=== PATIENT | male | born 1945 | race Caucasian/White ===

== ENCOUNTER 2019-09-12 14:45 | Outpatient (CLI) | payer MEDICARE, SELFPAY ==
--- NOTE | ~2019-09-12 | CT_ITS ---
EXAMINATION: CT abdomen pelvis wo con DATE: 09/12/2019 15:45 INDICATION: Bilateral flank pain. History of ureterolithiasis. TECHNIQUE: Computed tomography (CT) of the abdomen and pelvis was performed without intravenous contr ast. The dose-length product was 226.60 mGy-cm. Automated exposure control and iterative reconstructi on technique were employed. COMPARISON: 10/27/2009 FINDINGS: Left lower lobe atelectasis. Heart size normal. No significant pleural or pericardial effus ion. Mild atherosclerosis of the aorta. No lymphadenopathy. There are multiple nonobstructing bilateral renal stones, largest in the right renal pelvis measuring 1.7 cm maximum dimension. The liver, spleen, pancreas, adrenal glands are unremarkable. No ureteral stones or hydronephrosis. Bladder is unremarkable. Mildly prominent prostate gland. Nonobstructive segundo wel gas pattern. Colonic diverticulosis without evidence for diverticulitis. No free air or free flui d. Moderate lumbar spondylosis with grade 1 degenerative spondylolisthesis at L4-5. There are degener ative changes of the hips. IMPRESSION: 1. Nonobstructing bilateral nephrolithiasis. Reviewed, dictated and finalized at location A.
== END 2019-09-12 14:46 | disposition home or self-care (01) ==
PROVIDERS: Visit Provider Family Medicine
DX: N20.0 Calculus of kidney (principal)
CPT/HCPCS: 74176

== ENCOUNTER 2019-09-25 10:08 | Outpatient (CLI) | payer MEDICARE, SELFPAY ==
--- NOTE | ~2019-09-25 | XR_ITS ---
XR abdomen/kub 1V DATE: 09/25/2019 10:28 INDICATION: Calculus of kidney TECHNIQUE: AP projection, 2 views 11/13/2009 KUB COMPARISON: There are bilateral calcified renal calculi, more numerous on the right, documented on re cent 09/12/2019 CT abdomen pelvis examination. FINDINGS: No evidence of calcified calculus of the ureteral areas. The psoas shadows are intact. No bowel obstruction. No visceromegaly is detected. IMPRESSION: Bilateral calcified nephrolithiasis Reviewed, dictated and finalized at Location A. Reviewed, dictated and finalized at location B.
== END 2019-09-25 10:09 | disposition home or self-care (01) ==
LOC: ANHIMG 10:15
PROVIDERS: Visit Provider Urology
DX: N20.0 Calculus of kidney (principal)
CPT/HCPCS: 74018

== ENCOUNTER 2021-11-29 14:11 | Outpatient (CLI) | payer MEDICARE, SELFPAY ==
--- NOTE | ~2021-11-29 | US_ITS ---
US arterial ankle brachial ind INDICATION: Hypertension. Thickened toenails. TECHNIQUE: Segmental pressures and plethysmographic and Doppler waveforms of the brachial and lower e xtremity arteries were obtained. COMPARISON: None. FINDINGS: Right and left brachial artery pressures of 148 mm Hg and 146 mm Hg, respectively, are concordant (no rmal difference <= 30 mmHg). The right ankle-brachial index (MINI) is 1.14 (normal >= 0.9-1.0). The right great toe-brachial index (TBI) is 0.67 (normal >= 0.60). The left MINI is 1.18. The left TBI is 1.0. IMPRESSION: 1. Normal bilateral ankle and toe brachial indices. Reviewed, dictated and finalized at location B.
== END 2021-11-29 14:12 | disposition home or self-care (01) ==
PROVIDERS: PCP Family Medicine; Visit Provider Family Medicine
DX: M79.606 Pain in leg, unspecified (principal); M79.89 Other specified soft tissue disorders
CPT/HCPCS: 93922